=== PATIENT | female | born 2005 | race Caucasian/White ===

== ENCOUNTER 2024-01-17 19:01 | Emergency (ER) | payer SELFPAY ==
[~2024-01-17] VITALS: Ht 162.6 cm; Wt 84.1 kg
[2024-01-17] MEDS ORDERED: Home HYDROcodone/Acetaminophen 5/325 MG #4 TABS/PACK PO ONE (22:15)
[2024-01-17 22:57] VITALS: BP 118/80; PULSE 69; TEMP 98
== END 2024-01-17 22:57 | disposition home or self-care (01) ==
LOC: COL.ER 19:01
DX: M25.521 Pain in right elbow (principal); W01.0XXA Fall on same level from slipping, tripping and stumbling without subsequent striking against object, initial encounter; Y93.01 Activity, walking, marching and hiking